=== PATIENT | female | born 1955 | race African-American/Black ===

== ENCOUNTER 2017-07-09 17:20 | Emergency (ER) | payer MEDICAID, OTHER ==
[~2017-07-09] VITALS: Ht 160 cm; Wt 63.0 kg
[~2017-07-09 17:20] MED LIST: METF-440
[2017-07-09 17:24] VITALS: BP 116/71
[2017-07-09] MEDS ORDERED: DEXAMETHASONE SOD PHOSPHATE 10 MG/ML VIAL ONE (17:51)
[2017-07-09] MEDS ORDERED: DEXAMETHASONE SOD PHOSPHATE 4 MG/ML VIAL IM ONE (18:00)
== END 2017-07-09 17:56 | disposition home or self-care (01) ==
LOC: ER 17:29
DX: J04.0 Acute laryngitis (principal); E11.65 Type 2 diabetes mellitus with hyperglycemia; I10 Essential (primary) hypertension; Z60.2 Problems related to living alone; Z79.84 Long term (current) use of oral hypoglycemic drugs
CPT/HCPCS: 82962-TC; A4606; J1100; Z7610

== ENCOUNTER 2022-04-11 19:40 | Emergency (ER) | payer OTHER ==
[~2022-04-11] VITALS: Ht 175.3 cm; Wt 70.3 kg
--- NOTE | 2022-04-11 20:00 | NUR ---
[id number] FROM HOME FOR DIZZINESS SINCE THIS AM, WITH TONGUE SWELLING. BS 240. PLACED IN BED, AAOX4, BREATHING EVEN AND UNLABOREED SATURATING AT 97%RA.
--- NOTE | 2022-04-11 20:19 | NUR ---
SHOVEL ENGINEER AT BEDSIDE
[2022-04-11 20:42] LABS: BASOPHILS % (AUTO) 0.3 % (0.0-2.0); EOSINOPHILS % (AUTO) 1.6 % (0.0-6.0); HEMATOCRIT 41 % (33-45); HEMOGLOBIN 13.2 g/dL (11.5-14.8); LYMPHOCYTES # (AUTO) 4.1 K/uL (0.8-4.8); LYMPHOCYTES % (AUTO) 41.7 % (20.0-44.0); MEAN CORPUSCULAR HGB CONC 32 g/dl (31.0-36.0); MEAN CORPUSCULAR VOLUME 82 fL (82-100); MONOCYTES # (AUTO) 0.7 K/uL (0.1-1.30); MONOCYTES % (AUTO) 7.5 % (2.0-12.0); NEUTROPHILS # (AUTO) 4.8 K/uL (1.8-8.9); NEUTROPHILS % (AUTO) 48.9 % (43.0-81.0); PLATELET COUNT (AUTO) 285 K/uL (150-450); RED BLOOD CELL COUNT(AUTO) 5.02 MIL/uL (4.0-5.2); WHITE BLOOD COUNT (AUTO) 9.8 K/uL (4.3-11.0)
--- NOTE | 2022-04-11 20:45 | NUR ---
everardo dubois [phone]
[2022-04-11 20:56] LABS: CALCIUM, SERUM 9.3 mg/dL (8.5-10.1); CARBON DIOXIDE 27 mmol/L (21-32); CHLORIDE 102 mmol/L (98-107); GLUCOSE 234 mg/dL (74-106); POTASSIUM 3.3 mmol/L (3.5-5.1); SODIUM SERUM 139 mmol/L (136-145); UREA NITROGEN, BLOOD 20 mg/dL (7-18)
--- NOTE | 2022-04-11 21:03 | NUR ---
BETHANY ([facility]) [phone]
[2022-04-11 21:09] LABS: ALANINE AMINOTRANSFERASE 21 U/L (12-78); ALKALINE PHOSPHATASE 71 U/L (46-116); ASPARTATE AMINOTRANSFERASE 17 U/L (15-37); BILIRUBIN,DIRECT 0.1 mg/dL (0.0-0.2); BILIRUBIN,TOTAL 0.2 mg/dL (0.2-1.0); TOTAL PROTEIN, SERUM 7.5 g/dL (6.4-8.2)
--- NOTE | 2022-04-11 21:10 | NUR ---
URINE SAMPLE SENT TO LAB
[2022-04-11] MEDS ORDERED: IV NS 0.9% 1,000 ML IV ONE (21:30)
[2022-04-11] MEDS ORDERED: POTASSIUM CHLORIDE 20 MEQ TAB.PRT.SR PO ONE ×2 (21:30→21:35)
[2022-04-11 21:44] LABS: BILIRUBIN,URINE NEGATIVE (NEGATIVE); COLOR,URINE YELLOW (YELLOW); LEUKOCYTE ESTERASE ,URINE NEGATIVE (NEGATIVE); NITRITE, URINE NEGATIVE (NEGATIVE); PROTEIN,URINE NEGATIVE (NEGATIVE); UGLUCOSE NEGATIVE (NEGATIVE); UROBILINOGEN,URINE 0.2 EU/dL (0.2)
--- NOTE | 2022-04-11 23:21 | NUR ---
IV removed. Catheter intact and site benign. Pressure and 4x4 applied to site. No bleeding noted.Patient discharged to home in stable condition. Written and verbal after care instructions given. Patient verbalizes understanding of instruction.
[2022-04-11 23:22] VITALS: BP 155/76
== END 2022-04-11 23:21 | disposition home or self-care (01) ==
LOC: ER 19:41
DX: E11.65 Type 2 diabetes mellitus with hyperglycemia (principal); E86.0 Dehydration; Z60.2 Problems related to living alone; Z79.899 Other long term (current) drug therapy
CPT/HCPCS: 99284; 96360; 93005 ×2; 85025; 80048; 80076; 83735; 81003; 36415; 84484 ×2; 83880; J7030

== ENCOUNTER 2022-04-12 12:32 | Emergency (ER) | payer OTHER ==
[~2022-04-12] VITALS: Ht 160 cm; Wt 62.1 kg
--- NOTE | 2022-04-12 12:50 | NUR ---
BIBS C/O DIZZINESS AND NAUSEA ON AND OFF X1 WEEK, HAS DIZZY SPELLS THAT LAST FOR 1 MINUTE. PT DENIES UNILATERAL WEAKNESS. 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 PT AMBULATED TO BED WITH STEADY GAIT. AAOX4. VSS. BEATHING EVEN AND UNLABORED. AWAITING MD ORDERS.
--- NOTE | 2022-04-12 13:08 | NUR ---
Cameron adam in [facility] - 04/12/22 at [address]
--- NOTE | 2022-04-12 13:17 | NUR ---
Cameron adam in [facility] - 04/12/22 at [address]
--- NOTE | 2022-04-12 13:22 | NUR ---
DR. MISTRY AT BEDSIDE
--- NOTE | 2022-04-12 14:03 | NUR ---
TAKEN TO CT VIA HARRISON
--- NOTE | 2022-04-12 14:14 | NUR ---
RETURNED FROM CT
--- NOTE | 2022-04-12 15:44 | NUR ---
Patient discharged to home in stable condition. Written and verbal after care instructions given. Patient verbalizes understanding of instruction.
[2022-04-12 15:45] VITALS: BP 138/88
== END 2022-04-12 15:47 | disposition home or self-care (01) ==
LOC: ER 12:34
DX: R42 Dizziness and giddiness (principal); E11.65 Type 2 diabetes mellitus with hyperglycemia; Z60.2 Problems related to living alone; Z79.84 Long term (current) use of oral hypoglycemic drugs
CPT/HCPCS: 70450-TC; 71045-TC; 82962-TC

== ENCOUNTER 2022-04-14 16:30 | Emergency (ER) | payer OTHER ==
[~2022-04-14] VITALS: Ht 160 cm; Wt 63.5 kg
--- NOTE | 2022-04-14 16:40 | NUR ---
RECEVED PT 66 YRS FEMALE from home c/o dizzness for 3 days goting worse today
--- NOTE | 2022-04-14 16:59 | NUR ---
UA SNT BY EUGENIA SOMMERS
--- NOTE | 2022-04-14 17:00 | NUR ---
SEEN BY DR. SMITH
--- NOTE | 2022-04-14 17:45 | NUR ---
BLOOD DROW BY LAB TACH at bed side
--- NOTE | 2022-04-14 17:53 | NUR ---
ACC UCHECK DONE 84 mg/ld DR. SMITH AWARE
[2022-04-14] MEDS ORDERED: MECLIZINE HCL 25 MG TABLET PO ONE (18:00)
[2022-04-14 18:24] LABS: BILIRUBIN,URINE NEGATIVE (NEGATIVE); COLOR,URINE YELLOW (YELLOW); LEUKOCYTE ESTERASE ,URINE NEGATIVE (NEGATIVE); NITRITE, URINE NEGATIVE (NEGATIVE); PH,URINE 5.5 (5.0-8.0); PROTEIN,URINE NEGATIVE (NEGATIVE); UGLUCOSE NEGATIVE (NEGATIVE); UROBILINOGEN,URINE 0.2 EU/dL (0.2)
[2022-04-14 18:26] LABS: BASOPHILS % (AUTO) 0.4 % (0.0-2.0); EOSINOPHILS % (AUTO) 1.8 % (0.0-6.0); HEMATOCRIT 42 % (33-45); LYMPHOCYTES # (AUTO) 2.7 K/uL (0.8-4.8); MEAN CORPUSCULAR HGB CONC 31 g/dl (31.0-36.0); MEAN CORPUSCULAR VOLUME 82 fL (82-100); MONOCYTES # (AUTO) 0.6 K/uL (0.1-1.30); MONOCYTES % (AUTO) 7.7 % (2.0-12.0); NEUTROPHILS # (AUTO) 4.4 K/uL (1.8-8.9); NEUTROPHILS % (AUTO) 56.1 % (43.0-81.0); PLATELET COUNT (AUTO) 294 K/uL (150-450); RED BLOOD CELL COUNT(AUTO) 5.08 MIL/uL (4.0-5.2); WHITE BLOOD COUNT (AUTO) 7.9 K/uL (4.3-11.0)
[2022-04-14] MEDS ORDERED: MECLIZINE HCL 25 MG TABLET ONE (18:31)
[2022-04-14 18:52] LABS: ALBUMIN 4.1 g/dL (3.4-5.0); BILIRUBIN,DIRECT 0.1 mg/dL (0.0-0.2); BILIRUBIN,TOTAL 0.2 mg/dL (0.2-1.0); CALCIUM, SERUM 9.6 mg/dL (8.5-10.1); CREATININE 0.8 mg/dL (0.6-1.3); POTASSIUM 3.9 mmol/L (3.5-5.1); TOTAL PROTEIN, SERUM 7.8 g/dL (6.4-8.2)
[2022-04-14 19:11] VITALS: BP 107/70
--- NOTE | 2022-04-14 19:13 | NUR ---
HAND OFF TO TOAN SOMMERS
[2022-04-14] MEDS ORDERED: MECL-159 PO (19:20)
--- NOTE | 2022-04-14 19:43 | NUR ---
Patient discharged to home in stable condition. Written and verbal after care instructions given. Patient verbalizes understanding of instruction.
== END 2022-04-14 19:43 | disposition home or self-care (01) ==
LOC: ER 16:41
DX: R42 Dizziness and giddiness (principal); E11.9 Type 2 diabetes mellitus without complications; Z60.2 Problems related to living alone; Z79.84 Long term (current) use of oral hypoglycemic drugs
CPT/HCPCS: 99285; 71045; 93005; 85025; 80048; 87086; 83690; 80076; 81003; 36415; 84484; 82962; J8597

== ENCOUNTER 2022-05-28 19:40 | Emergency (ER) | payer MEDICARE, OTHER ==
[~2022-05-28] VITALS: Ht 160 cm; Wt 59.4 kg
[~2022-05-28 19:40] MED LIST changes: +MECL-159 PO
--- NOTE | 2022-05-28 19:57 | NUR ---
[id number] [facility] HOME C/O ANXIETY , ACCUCHECK AT SCENE 152. TAKING NEW MEDICATION JARDIANCE FOR DM & BELIEVES HAVING S/E SUCH HAS INCREASED THIRST, LACK OF APPETITE. PT A/OX4. TOLERATING R/A WELL WITH NO RESP DISTRESS. SAFETY MEASURES IN PLACE.
[2022-05-28] MEDS ORDERED: IV NS 0.9% 1,000 ML BAG IV ONE (20:00)
--- NOTE | 2022-05-28 20:00 | NUR ---
URINE SPECIMEN SENT TO LAB
[2022-05-28 20:23] LABS: BILIRUBIN,URINE NEGATIVE (NEGATIVE); LEUKOCYTE ESTERASE ,URINE NEGATIVE (NEGATIVE); NITRITE, URINE NEGATIVE (NEGATIVE); PH,URINE 5.5 (5.0-8.0); PROTEIN,URINE NEGATIVE (NEGATIVE); UGLUCOSE 3+ mg/dL (NEGATIVE); UROBILINOGEN,URINE 0.2 EU/dL (0.2)
[2022-05-28 20:28] LABS: COLOR,URINE LIGHT YELLOW (YELLOW)
--- NOTE | 2022-05-28 20:36 | NUR ---
IV ESTABLISHED RFA #18G S/L
[2022-05-28 20:50] LABS: ALANINE AMINOTRANSFERASE 29 U/L (12-78); ALKALINE PHOSPHATASE 67 U/L (46-116); ASPARTATE AMINOTRANSFERASE 20 U/L (15-37); BILIRUBIN,DIRECT 0.1 mg/dL (0.0-0.2); BILIRUBIN,TOTAL 0.2 mg/dL (0.2-1.0); CALCIUM, SERUM 9.2 mg/dL (8.5-10.1); CARBON DIOXIDE 25 mmol/L (21-32); CHLORIDE 105 mmol/L (98-107); CREATININE 0.8 mg/dL (0.6-1.3); GLUCOSE 159 mg/dL (74-106); POTASSIUM 3.8 mmol/L (3.5-5.1); SODIUM SERUM 141 mmol/L (136-145); TOTAL PROTEIN, SERUM 7.1 g/dL (6.4-8.2); UREA NITROGEN, BLOOD 18 mg/dL (7-18)
[2022-05-28 20:53] LABS: BACTERIA,URINE None seen /HPF (None Seen); SQUAMOUS EPITHELIAL CELL,UR Few /HPF (None Seen); WBC,URINE NONE SEEN /HPF (0-3)
[2022-05-28 20:54] LABS: RBC,URINE 0-2 /HPF (0-2)
[2022-05-28] MEDS ORDERED: MECL-159 PO (22:16)
--- NOTE | 2022-05-28 22:16 | NUR ---
IV removed. Catheter intact and site benign. Pressure and 4x4 applied to site. No bleeding noted.
--- NOTE | 2022-05-28 22:45 | NUR ---
Patient discharged to home in stable condition. rx Written and verbal after care instructions given. Patient verbalizes understanding of instruction. pt ambulatory with a steady gait
[2022-05-28 22:47] VITALS: BP 139/79
[2022-05-28 23:17] LABS: BASOPHILS % (AUTO) 0.2 % (0.0-2.0); EOSINOPHILS % (AUTO) 2.2 % (0.0-6.0); HEMATOCRIT 38 % (33-45); HEMOGLOBIN 12.3 g/dL (11.5-14.8); LYMPHOCYTES # (AUTO) 2.7 K/uL (0.8-4.8); LYMPHOCYTES % (AUTO) 36.1 % (20.0-44.0); MEAN CORPUSCULAR HGB CONC 33 g/dl (31.0-36.0); MEAN CORPUSCULAR VOLUME 80 fL (82-100); MONOCYTES # (AUTO) 0.6 K/uL (0.1-1.30); MONOCYTES % (AUTO) 8.1 % (2.0-12.0); NEUTROPHILS # (AUTO) 3.9 K/uL (1.8-8.9); NEUTROPHILS % (AUTO) 53.4 % (43.0-81.0); PLATELET COUNT (AUTO) 261 K/uL (150-450); RED BLOOD CELL COUNT(AUTO) 4.75 MIL/uL (4.0-5.2); WHITE BLOOD COUNT (AUTO) 7.4 K/uL (4.3-11.0)
== END 2022-05-28 22:48 | disposition home or self-care (01) ==
LOC: ER 19:43
DX: R42 Dizziness and giddiness (principal); E11.9 Type 2 diabetes mellitus without complications; F41.9 Anxiety disorder, unspecified; Z60.2 Problems related to living alone; Z79.84 Long term (current) use of oral hypoglycemic drugs; Z79.899 Other long term (current) drug therapy
CPT/HCPCS: 99285; 96360; 71045; 93005; 85025; 80048; 80076; 81001; 36415; 84484; J7030

== ENCOUNTER 2022-10-12 09:42 | Inpatient (IN) | payer MEDICARE, OTHER ==
[~2022-10-12] VITALS: Ht 160 cm; Wt 68.0 kg
[2022-10-12 10:20] LABS: CALCIUM, SERUM 9.8 mg/dL (8.5-10.1); CARBON DIOXIDE 24 mmol/L (21-32); CHLORIDE 102 mmol/L (98-107); CREATININE 0.8 mg/dL (0.6-1.3); GLUCOSE 161 mg/dL (74-106); SODIUM SERUM 138 mmol/L (136-145); UREA NITROGEN, BLOOD 19 mg/dL (7-18)
[2022-10-12 10:21] LABS: HEMATOCRIT 38 % (33-45); WHITE BLOOD COUNT (AUTO) 8.2 K/uL (4.3-11.0)
[2022-10-12] MEDS ORDERED: ATOR40TA PO (10:31)
[2022-10-12] MEDS ORDERED: CLOP75TA15 PO (10:31)
[2022-10-12] MEDS ORDERED: AMOX500C2 PO (10:31)
[2022-10-12] MEDS ORDERED: SITA1TAB6 PO (10:31)
[2022-10-12] MEDS ORDERED: ESCI5TAB PO (10:31)
[2022-10-12] MEDS ORDERED: BUSP5TAB3 PO (10:31)
[2022-10-12 10:47] LABS: BASOPHILS # (AUTO) 0.3 K/uL (0.0-0.2); BASOPHILS % (AUTO) 3.9 % (0.0-2.0); EOSINOPHILS # (AUTO) 0.2 K/uL (0.0-0.7); EOSINOPHILS % (AUTO) 2.4 % (0.0-6.0); HEMOGLOBIN 12.5 g/dL (11.5-14.8); LYMPHOCYTES % (AUTO) 24.5 % (20.0-44.0); MEAN CORPUSCULAR HEMOGLOBIN 26 PG (26.0-33.0); MEAN CORPUSCULAR HGB CONC 33 g/dl (31.0-36.0); MEAN CORPUSCULAR VOLUME 79 fL (82-100); MONOCYTES # (AUTO) 0.3 K/uL (0.1-1.30); MONOCYTES % (AUTO) 4.1 % (2.0-12.0); NEUTROPHILS # (AUTO) 5.3 K/uL (1.8-8.9); NEUTROPHILS % (AUTO) 65.1 % (43.0-81.0); PLATELET COUNT (AUTO) 266 K/uL (150-450); RED BLOOD CELL COUNT(AUTO) 4.76 MIL/uL (4.0-5.2); RED CELL DISTRIBUTION WIDTH 14.7 % (11.5-15.0)
[2022-10-12] MEDS ORDERED: ZOLPIDEM TARTRATE 5 MG TABLET PO PRN (16:30)
[2022-10-12] MEDS ORDERED: MAGNESIUM HYDROXIDE 30 ML UDC PO PRN (16:30)
[2022-10-12] MEDS ORDERED: ACETAMINOPHEN 325 MG TABLET PO PRN (16:30)
[2022-10-12] MEDS ORDERED: Z GUARD REMEDY 4 OZ OINT TP PRN (16:30)
[2022-10-12] MEDS ORDERED: MAG HYDROX/AL HYDROX/SIMETH 30 ML UDC PO PRN (16:30)
[2022-10-12] MEDS ORDERED: ONDANSETRON HCL/PF 4 MG/2 ML VIAL IVP PRN (16:30)
[2022-10-12] MEDS: ENOXAPARIN SODIUM 40 MG/0.4 ML DISP.SYRIN SQ SCH (17:02)
[2022-10-12] MEDS ORDERED: *INSULIN REGULAR(HUMULIN R)HUM 100 UNIT/ML VIAL SQ PRN (17:30)
[2022-10-12] MEDS ORDERED: DEXTROSE 50%-WATER 50 ML DISP.SYRIN IV PRN (17:30)
[2022-10-12] MEDS ORDERED: INSULIN REGULAR, HUMAN 100 UNIT/ML 3 ML VIAL SQ PRN (17:30)
[2022-10-12 17:33] VITALS: BP 111/69; TEMP 98.5; O2SAT 99
[2022-10-12] MEDS: BLOOD SUGAR DIAGNOSTIC 1 EACH STRIP VI SCH ×2 (17:43→21:15)
[2022-10-12] MEDS: ATORVASTATIN 40 MG TABLET PO SCH (21:13)
[2022-10-12] MEDS: METFORMIN 500 MG TABLET PO SCH (21:13)
[2022-10-12] MEDS ORDERED: busPIRone 5 MG TABLET PO ONE (22:00)
[2022-10-13 00:11] VITALS: BP 109/71; TEMP 98.2; O2SAT 96
[2022-10-13 06:24] LABS: BASOPHILS % (AUTO) 0.4 % (0.0-2.0); EOSINOPHILS # (AUTO) 0.2 K/uL (0.0-0.7); EOSINOPHILS % (AUTO) 2.1 % (0.0-6.0); HEMATOCRIT 37 % (33-45); HEMOGLOBIN 12.1 g/dL (11.5-14.8); LYMPHOCYTES # (AUTO) 2.7 K/uL (0.8-4.8); LYMPHOCYTES % (AUTO) 35.4 % (20.0-44.0); MEAN CORPUSCULAR HEMOGLOBIN 26 PG (26.0-33.0); MEAN CORPUSCULAR HGB CONC 32 g/dl (31.0-36.0); MEAN CORPUSCULAR VOLUME 80 fL (82-100); MONOCYTES # (AUTO) 0.6 K/uL (0.1-1.30); MONOCYTES % (AUTO) 7.5 % (2.0-12.0); NEUTROPHILS # (AUTO) 4.2 K/uL (1.8-8.9); NEUTROPHILS % (AUTO) 54.6 % (43.0-81.0); PLATELET COUNT (AUTO) 244 K/uL (150-450); RED BLOOD CELL COUNT(AUTO) 4.67 MIL/uL (4.0-5.2); RED CELL DISTRIBUTION WIDTH 14.6 % (11.5-15.0); WHITE BLOOD COUNT (AUTO) 7.6 K/uL (4.3-11.0)
[2022-10-13 07:15] LABS: CALCIUM, SERUM 9.5 mg/dL (8.5-10.1); CREATININE 0.6 mg/dL (0.6-1.3); MAGNESIUM 1.9 mg/dL (1.8-2.4); POTASSIUM 4.2 mmol/L (3.5-5.1)
[2022-10-13 07:19] LABS: THYROID STIMULATING HORMONE 1.655 uIU/mL (0.358-3.74)
[2022-10-13 07:39] LABS: PHOSPHORUS 4.1 mg/dL (2.5-4.9)
[2022-10-13] MEDS: PANTOPRAZOLE 40 MG TABLET.DR PO SCH (07:41)
[2022-10-13] MEDS: BLOOD SUGAR DIAGNOSTIC 1 EACH STRIP VI SCH ×4 (07:43→23:01)
[2022-10-13 08:00] VITALS: BP 110/70; TEMP 98.2; O2SAT 98
[2022-10-13] MEDS: CLOPIDOGREL BISULFATE 75 MG TABLET PO SCH (08:11)
[2022-10-13] MEDS: busPIRone 5 MG TABLET PO SCH ×3 (08:33→16:58)
[2022-10-13] MEDS: LINAGLIPTIN 5 MG TABLET PO SCH (08:33)
[2022-10-13] MEDS: METFORMIN 500 MG TABLET PO SCH ×2 (08:33→20:50)
[2022-10-13] MEDS: ESCITALOPRAM OXALATE (10 MG) 10 MG TABLET PO SCH (08:34)
[2022-10-13] MEDS ORDERED: IOHEXOL-350 100 ML VIAL IV ONE (11:40)
[2022-10-13] MEDS ORDERED: IV NS 0.9% 250 ML IV ONE (11:40)
[2022-10-13] MEDS ORDERED: CT SWABBABLE VALVE TRANS SET 1 EA INFUS.SET MC ONE (11:40)
[2022-10-13 12:00] VITALS: BP 114/69; TEMP 98.1; O2SAT 98
[2022-10-13 16:00] VITALS: BP 112/63; TEMP 98; O2SAT 99
[2022-10-13] MEDS: ENOXAPARIN SODIUM 40 MG/0.4 ML DISP.SYRIN SQ SCH (16:58)
[2022-10-13 20:00] VITALS: BP 117/70; TEMP 98; O2SAT 98
[2022-10-13] MEDS ORDERED: LORAZEPAM 1 MG TABLET PO PRN (20:00)
[2022-10-13] MEDS: ATORVASTATIN 40 MG TABLET PO SCH (21:00)
[2022-10-14] VITALS: BP 138/72; TEMP 97.9; O2SAT 99
[2022-10-14 04:00] VITALS: BP 102/59; TEMP 98.3; O2SAT 97
[2022-10-14 06:36] LABS: BASOPHILS % (AUTO) 0.4 % (0.0-2.0); EOSINOPHILS # (AUTO) 0.2 K/uL (0.0-0.7); EOSINOPHILS % (AUTO) 2.3 % (0.0-6.0); HEMATOCRIT 38 % (33-45); HEMOGLOBIN 12.4 g/dL (11.5-14.8); LYMPHOCYTES # (AUTO) 3.4 K/uL (0.8-4.8); LYMPHOCYTES % (AUTO) 39.6 % (20.0-44.0); MEAN CORPUSCULAR HEMOGLOBIN 26 PG (26.0-33.0); MEAN CORPUSCULAR HGB CONC 32 g/dl (31.0-36.0); MEAN CORPUSCULAR VOLUME 81 fL (82-100); MONOCYTES # (AUTO) 0.7 K/uL (0.1-1.30); MONOCYTES % (AUTO) 8.7 % (2.0-12.0); NEUTROPHILS # (AUTO) 4.2 K/uL (1.8-8.9); PLATELET COUNT (AUTO) 256 K/uL (150-450); RED BLOOD CELL COUNT(AUTO) 4.77 MIL/uL (4.0-5.2); RED CELL DISTRIBUTION WIDTH 14.4 % (11.5-15.0); WHITE BLOOD COUNT (AUTO) 8.6 K/uL (4.3-11.0)
[2022-10-14 06:58] LABS: CALCIUM, SERUM 9.4 mg/dL (8.5-10.1); CREATININE 0.7 mg/dL (0.6-1.3); MAGNESIUM 1.7 mg/dL (1.8-2.4); POTASSIUM 4.2 mmol/L (3.5-5.1)
[2022-10-14 08:00] VITALS: BP 101/66; TEMP 98; O2SAT 96
[2022-10-14] MEDS: PANTOPRAZOLE 40 MG TABLET.DR PO SCH (08:07)
[2022-10-14] MEDS: ESCITALOPRAM OXALATE (10 MG) 10 MG TABLET PO SCH (08:07)
[2022-10-14] MEDS: busPIRone 5 MG TABLET PO SCH ×3 (08:07→16:36)
[2022-10-14] MEDS: METFORMIN 500 MG TABLET PO SCH (08:07)
[2022-10-14] MEDS: LINAGLIPTIN 5 MG TABLET PO SCH (08:08)
[2022-10-14] MEDS: CLOPIDOGREL BISULFATE 75 MG TABLET PO SCH (08:08)
[2022-10-14] MEDS: BLOOD SUGAR DIAGNOSTIC 1 EACH STRIP VI SCH ×3 (08:13→16:57)
[2022-10-14] MEDS ORDERED: MAGNESIUM OXIDE 400 MG TABLET PO ONE (11:00)
[2022-10-14] MEDS: ENOXAPARIN SODIUM 40 MG/0.4 ML DISP.SYRIN SQ SCH (16:37)
== END 2022-10-14 19:17 | disposition home health service (06) | DRG 880 ==
LOC: ER 09:49 → TELE1 14:44
PROVIDERS: ADMIT Student in an Organized Health Care Education/Training Program; ATTEND Student in an Organized Health Care Education/Training Program
DX: F41.9 Anxiety disorder, unspecified (principal); E11.65 Type 2 diabetes mellitus with hyperglycemia; Z79.84 Long term (current) use of oral hypoglycemic drugs; E78.5 Hyperlipidemia, unspecified; E27.8 Other specified disorders of adrenal gland; Z79.02 Long term (current) use of antithrombotics/antiplatelets; Z79.82 Long term (current) use of aspirin; Z86.73 Personal history of transient ischemic attack (TIA), and cerebral infarction without residual deficits; Z82.3 Family history of stroke
CPT/HCPCS: 36415; 71045-TC; 80048-TC; 80061-TC; 82962-TC; 83735-TC; 84100-TC; 84443-TC; 84484-TC; 85025-TC; 93307-TC; 93970-TC; G0378; J1650; J1815; J7050; Q9967

== ENCOUNTER 2023-01-13 19:39 | Emergency (ER) | payer MEDICARE, OTHER ==
[~2023-01-13] VITALS: Ht 160 cm; Wt 63.5 kg
[~2023-01-13 19:39] MED LIST changes: +AMOX500C2 PO; +ATOR40TA PO; +BUSP5TAB3 PO; +CLOP75TA15 PO; +ESCI5TAB PO; -MECL-159 PO; -METF-440; +SITA1TAB6 PO
[2023-01-13] MEDS ORDERED: IV NS 0.9% 1,000 ML BAG IV ONE (20:30)
[2023-01-13 20:44] LABS: BASOPHILS # (AUTO) 0.1 K/uL (0.0-0.2); BASOPHILS % (AUTO) 1.1 % (0.0-2.0); EOSINOPHILS # (AUTO) 0.4 K/uL (0.0-0.7); EOSINOPHILS % (AUTO) 4.6 % (0.0-6.0); HEMATOCRIT 38 % (33-45); HEMOGLOBIN 12.1 g/dL (11.5-14.8); LYMPHOCYTES # (AUTO) 2.4 K/uL (0.8-4.8); LYMPHOCYTES % (AUTO) 27.2 % (20.0-44.0); MEAN CORPUSCULAR HEMOGLOBIN 26 PG (26.0-33.0); MEAN CORPUSCULAR HGB CONC 32 g/dl (31.0-36.0); MEAN CORPUSCULAR VOLUME 80 fL (82-100); MONOCYTES # (AUTO) 0.7 K/uL (0.1-1.30); MONOCYTES % (AUTO) 8.1 % (2.0-12.0); NEUTROPHILS # (AUTO) 5.1 K/uL (1.8-8.9); PLATELET COUNT (AUTO) 233 K/uL (150-450); RED BLOOD CELL COUNT(AUTO) 4.72 MIL/uL (4.0-5.2); RED CELL DISTRIBUTION WIDTH 15.1 % (11.5-15.0); WHITE BLOOD COUNT (AUTO) 8.7 K/uL (4.3-11.0)
[2023-01-13 21:03] LABS: CALCIUM, SERUM 9.4 mg/dL (8.5-10.1); CARBON DIOXIDE 29 mmol/L (21-32); CHLORIDE 101 mmol/L (98-107); CREATININE 0.8 mg/dL (0.6-1.3); GLUCOSE 152 mg/dL (74-106); POTASSIUM 4.1 mmol/L (3.5-5.1); SODIUM SERUM 138 mmol/L (136-145); UREA NITROGEN, BLOOD 17 mg/dL (7-18)
[2023-01-13 22:06] VITALS: BP 131/72; TEMP 98.3; O2SAT 98
== END 2023-01-13 22:06 | disposition home or self-care (01) ==
LOC: ER 19:43
DX: R42 Dizziness and giddiness (principal); E11.9 Type 2 diabetes mellitus without complications; Z79.899 Other long term (current) drug therapy; Z60.2 Problems related to living alone
CPT/HCPCS: 99285; 96360; 71045; 93005 ×2; 85025; 80048; 36415; 84484; J7030

== ENCOUNTER 2023-08-11 20:05 | Emergency (ER) | payer MEDICARE, OTHER ==
[~2023-08-11] VITALS: Ht 165.1 cm; Wt 60.8 kg
[2023-08-11] MEDS: IV NS 0.9% 1,000 ML BAG IV ONE (20:56)
[2023-08-11] MEDS ORDERED: MECLIZINE HCL 25 MG TABLET ONE (21:09)
[2023-08-11] MEDS: MECLIZINE HCL 12.5 MG TABLET PO ONE (21:10)
[2023-08-11 21:11] LABS: BASOPHILS % (AUTO) 0.4 % (0.0-2.0); EOSINOPHILS # (AUTO) 0.2 K/uL (0.0-0.7); EOSINOPHILS % (AUTO) 2.5 % (0.0-6.0); HEMATOCRIT 37 % (33-45); HEMOGLOBIN 11.9 g/dL (11.5-14.8); LYMPHOCYTES # (AUTO) 2.6 K/uL (0.8-4.8); LYMPHOCYTES % (AUTO) 30.5 % (20.0-44.0); MEAN CORPUSCULAR HEMOGLOBIN 26 PG (26.0-33.0); MEAN CORPUSCULAR HGB CONC 32 g/dl (31.0-36.0); MEAN CORPUSCULAR VOLUME 81 fL (82-100); MONOCYTES # (AUTO) 0.7 K/uL (0.1-1.30); MONOCYTES % (AUTO) 8.2 % (2.0-12.0); NEUTROPHILS % (AUTO) 58.4 % (43.0-81.0); PLATELET COUNT (AUTO) 243 K/uL (150-450); RED BLOOD CELL COUNT(AUTO) 4.58 MIL/uL (4.0-5.2); RED CELL DISTRIBUTION WIDTH 15.5 % (11.5-15.0); WHITE BLOOD COUNT (AUTO) 8.5 K/uL (4.3-11.0)
[2023-08-11 21:43] LABS: CALCIUM, SERUM 8.4 mg/dL (8.5-10.1); CARBON DIOXIDE 28 mmol/L (21-32); CHLORIDE 103 mmol/L (98-107); CREATININE 0.9 mg/dL (0.6-1.3); GLUCOSE 237 mg/dL (74-106); POTASSIUM 3.7 mmol/L (3.5-5.1); SODIUM SERUM 140 mmol/L (136-145); UREA NITROGEN, BLOOD 23 mg/dL (7-18)
[2023-08-11 21:46] LABS: INR 1.07 (0.91-1.10); PARTIAL THROMBOPLASTIN TIME 26.5 SEC (24.3-34.3); PROTHROMBIN TIME 11.3 SECS (9.2-11.1)
[2023-08-11 21:52] LABS: ALANINE AMINOTRANSFERASE 27 U/L (12-78); ALBUMIN 3.7 g/dL (3.4-5.0); ALKALINE PHOSPHATASE 85 U/L (46-116); ASPARTATE AMINOTRANSFERASE 19 U/L (15-37); BILIRUBIN,DIRECT 0.1 mg/dL (0.0-0.2); BILIRUBIN,TOTAL 0.2 mg/dL (0.2-1.0); TOTAL PROTEIN, SERUM 7.1 g/dL (6.4-8.2)
[2023-08-11] MEDS ORDERED: MECL-159 PO (21:55)
[2023-08-11 23:01] VITALS: BP 136/82; TEMP 98.6; O2SAT 98
== END 2023-08-11 23:01 | disposition home or self-care (01) ==
LOC: ER 20:16
DX: E11.65 Type 2 diabetes mellitus with hyperglycemia (principal); R42 Dizziness and giddiness; Z79.899 Other long term (current) drug therapy; Z60.2 Problems related to living alone
CPT/HCPCS: 99285; 96360; 70450; 71045; 93005; 85025; 80048; 80076; 36415; 84484; 85730; 82962; J8597; J7030